=== PATIENT | female | born 1950 | race Caucasian/White ===

== ENCOUNTER 2020-11-12 12:55 | Emergency (ER) | payer MEDICARE, OTHER ==
[~2020-11-12] VITALS: Ht 170.1 cm; Wt 60.0 kg
--- NOTE | 2020-11-12 13:13 | ED Lower Extremity ---
General Chief Complaint: Lower Extremity Stated Complaint: LEFT KNEE PAIN Source: patient Exam Limitations: no limitations History of Present Illness Date Seen by Provider: Nov 12, 2020 Time Seen by Provider: 13:20 Initial Comments To ER with left knee pain. She was riding on a float in a parade when she stepped down off of it and felt a popping sensation in the back of her knee on the left. The pain is worse when she fully extends the knee and bears weight. Onset: just prior to arrival Severity: moderate Pain/Injury Location: left knee Method of Injury: twisted Modifying Factors: Worse With Movement Allergies and Home Medications Patient Home Medication List Home Medication List Reviewed: Yes Review of Systems Constitutional: see HPI EENTM: see HPI Respiratory: no symptoms reported Cardiovascular: no symptoms reported Genitourinary: no symptoms reported Musculoskeletal: see HPI Skin: no symptoms reported Past [id number] Hx Patient Social History Tobacco Use?: No Use of E-Cig and/or Vaping dev: No Substance use?: No Alcohol Use?: No Pt feels they are or have been: No Immunizations Up To Date Influenza Vaccine Up-to-Date: No; Not Current First/Initial COVID19 Vaccinat: 06/08 COVID19 Vaccine [employer] Goods: J[employer]J Physical Exam Vital Signs Vital Signs - First Documented 11/12/20 13:04 Temp 36.7 Pulse 104 Resp 18 B/P (MAP) 163/49 (87) Pulse Ox 98 O2 Delivery Room Air Capillary Refill : Height, Weight, BMI Height: '" Weight: lbs. oz. kg; BMI Method: General Appearance: WD/WN, no apparent distress Respiratory: no respiratory distress, no accessory muscle use Hips: bilateral hip non-tender, bilateral hip normal inspection, bilateral hip normal range of motion Legs: bilateral leg non-tender, bilateral leg normal inspection, bilateral leg normal range of motion Knees: bilateral knee non-tender, bilateral knee normal inspection, bilateral knee normal range of motion; left knee other (Posterior tenderness. No ligamentous instability) Ankles: bilateral ankle non-tender, bilateral ankle normal inspection, bilateral ankle normal range of motion Feet: bilateral foot non-tender, bilateral foot normal inspection, bilateral foot normal range of motion Neurologic/Tendon: normal sensation, normal motor functions Neurologic/Psychiatric: alert, normal mood/affect, oriented x 3 Skin: normal color, warm/dry Progress/Results/Core Measures Results/Orders My Orders Orders - RAKAN PLAZA APRN Knee, Left, 3 Views (11/12/20 13:10) Vital Signs/I&O 11/12/20 13:04 Temp 36.7 Pulse 104 Resp 18 B/P (MAP) 163/49 (87) Pulse Ox 98 O2 Delivery Room Air Departure Impression Primary Impression: Internal derangement of left knee Disposition: HOME, SELF-CARE Condition: Stable Departure-Patient Inst. Decision time for Depature: 13:23 Referrals: NO,LOCAL PHYSICIAN (PCP/Family) Primary Care Physician Patient Instructions: Internal Derangement of the Knee Add. Discharge Instructions: 1. Ibuprofen and naproxen for pain control. Crutches as needed. If pain persist in the next week then follow-up with primary care to discuss obtaining an MRI of the knee to evaluate the soft tissue structures such as the ligaments and meniscus. All discharge instructions reviewed with patient and/or family. Voiced understanding. RAKAN PLAZA APRN Nov 12, 2020 13:12
--- NOTE | 2020-11-12 13:27 | Diagnostic Imaging Report ---
EXAMINATION: Left knee 3 views HISTORY: pain COMPARISON: None available. FINDINGS: Small effusions. No fracture. The alignment is normal. 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 IMPRESSION: Small effusions and mild patellofemoral osteoarthritis. Dictated by: Dictated on workstation # [id number]
[2020-11-12 13:50] VITALS: BP 147/60
== END 2020-11-12 13:49 | disposition home or self-care (01) ==
LOC: EDUNIT# 12:55 → ER 12:58
DX: M23.92 Unspecified internal derangement of left knee (principal)
CPT/HCPCS: 73562